=== PATIENT | female | born 1950 | race Caucasian/White ===

== ENCOUNTER 2017-08-10 02:57 | Inpatient (IN) | payer OTHER ==
[~2017-08-10] VITALS: Ht 172.7 cm; Wt 63.5 kg
--- NOTE | ~2017-08-10 | PR ---
[place], [place] PROGRESS NOTE NAME: YULIANA BARAJAS UNIT #: [id number] ROOM: 312 DOCTOR: NAVNEET LARSON DO BIRTHDATE: [birth year] DOS: 08/13/2017 CHIEF COMPLAINT: "I feel tired." SUMMARY OF VISIT: The patient was interviewed in the dining jaime during group session. She states that she is feeling well but states that she feels tired. She reports to staff that she continues to complain about burning in her tongue. She did refuse Magic mouthwash or any other oral medication for her mouth. Staff reported that she did not sleep well. MENTAL STATUS: She is alert and oriented with some time gaps. Her mood is distraught and she continues to have auditory hallucinations with delusions. PLAN: We will increase her Clozaril to 100 mg at night and discontinue the Vistaril. We will continue to watch and monitor her and encourage her to engage in individual and group activities with the plan to return her to the last restrictive environment when she is psychiatrically stable. NAVNEET LARSON DO APOLLO THOMAS MD CM:PNTRANS [id number] [id number] NAVNEET LARSON DO 08/13/17 1429 interface
--- NOTE | ~2017-08-10 | PR ---
[place], [place] PROGRESS NOTE NAME: YULIANA BARAJAS UNIT #: [id number] ROOM: 315 DOCTOR: APOLLO THOMAS MD BIRTHDATE: [birth year] DOS: 08/24/2017 CHIEF COMPLAINT: "I feel sick in my stomach, I feel nauseated, I threw up." SUMMARY OF THE VISIT: The patient was once again interviewed in her room as she was lying in bed, continuing to complain of nausea. This has been a persistent complaint of hers that is occurring on and off. I do not know if this is somatization that she uses to try to stay out of groups or if she truly is sick. Otherwise, when I have seen her the last couple of days, she has brightened upon approach. She seems to be much more pleasant. Her only complaint is that she does not want to go back to the [facility], so perhaps some of her somatization is to find reasons to stay here in the hospital. In any case, I will go ahead and treat and will defer to the hospitalist for any other workup. MENTAL STATUS: She is alert and oriented. Mood does seem to be strongly trending towards euthymia. Affect is more appropriate. There is no henry, hypomania and I do not see gross psychosis as previously. Memory is intact. PLAN: I will go ahead and at least do a short course of Compazine 10 mg t.i.d. straight to see if this impacts positively on her symptoms and if this allows her to attend to groups and other activities. As mentioned above, I will go ahead and defer to the hospitalist if they want to work this up for any organic factors. APOLLO THOMAS MD CM:PNTRANS 1023 1038 APOLLO THOMAS MD 08/24/17 1037 interface
--- NOTE | ~2017-08-10 | PR ---
[place], [place] PROGRESS NOTE NAME: YULIANA BARAJAS UNIT #: [id number] ROOM: 315 DOCTOR: NAVNEET LARSON DO BIRTHDATE: [birth year] DOS: 08/20/2017 CHIEF COMPLAINT: "I am not dizzy." SUMMARY OF VISIT: The patient was interviewed in the dining room. She states that she did not sleep well last night. She denies dizziness. Per staff, she did take her potassium. She appears more alert and oriented at this time than previous days. MENTAL STATUS EXAMINATION: She is alert and oriented, with some time gaps. Mood seems to be trending towards euthymia. She does not have any symptoms or signs of henry or hypomania. Short term memory has gaps, otherwise is intact. She continues to have the symptoms of delusions. PLAN: We will start her on Rozerem 8 mg at night in order to attempt to maximize potential benefit for sleep. We will continue other current psychotropic regimen at this time with her Wellbutrin and Clozaril. She did seem to be more awake and alert today. We will continue to engage her in group and individual activities with the plan to return her to the least restrictive environment when psychiatrically stable. NAVNEET LARSON DO APOLLO THOMAS MD CM:PNTRANS 1133 1345 NAVNEET LARSON DO 08/20/17 1343 interface
--- NOTE | ~2017-08-10 | WRIGHTHP ---
[place], [place] PATIENT HISTORY AND PHYSICAL EXAM NAME: YULIANA BARAJAS UNIT #: [id number] ROOM: 312 DOCTOR: APOLLO THOMAS MD BIRTHDATE: [birth year] DOS: 08/10/2017 PSYCHIATRIC EVALUATION CHIEF COMPLAINT: "I am not schizophrenic, I am bipolar." HISTORY OF PRESENT ILLNESS: This is a 67-year-old white female who is a resident of the [facility]. The patient was brought to the Emergency Room at [facility] and ultimately sent here on an involuntary basis due to gross psychotic symptoms. The patient has been experiencing increased auditory and visual hallucinations. She believes she is seeing ghosts are eating her face up and infecting her with HIV and AIDS. She reports that her tongue is cracked and that is because of the ghost. She has not been eating or drinking well, nor has she necessarily been compliant with her medicines. She is admitted now to rule out organic factors, to stabilize on medication and engage in individual and appiah milieu activity. PAST MEDICAL HISTORY: Remarkable for either history of schizophrenia or bipolar, most likely schizoaffective disorder, also COPD, DVT, eczema, hypertension, [place], hyperlipidemia and Parkinson's disease. ALLERGIES: She has allergies to PENICILLIN, CODEINE and TETRACYCLINE. MENTAL STATUS: She is alert and oriented to person, place and approximate to time. Mood is labile. Affect inappropriate. She is grossly delusional and somewhat paranoid. Short term memory does have some gaps. DIAGNOSIS: Schizoaffective disorder. PLAN: I have already discontinued her Depakote and Cymbalta. I will go ahead and start her on Remeron 15 mg at bedtime for the mood component, discontinue the Risperdal in lieu of Invega 3 mg in the morning. She does have some significant tardive dyskinesia, so I will start vitamin E 200 International Units in the morning, engage in individual and appiah milieu activity, returning to the least restrictive environment when stable. [place], [place] PATIENT HISTORY AND PHYSICAL EXAM NAME: YULIANA BARAJAS UNIT #: [id number] ROOM: 312 DOCTOR: APOLLO THOMAS MD BIRTHDATE: [birth year] APOLLO THOMAS MD CM:HISPHYS:PATIENT HISTORY AND PHYSICAL EXAMINATION 1 1 APOLLO THOMAS MD 08/10/17 0901 interface
--- NOTE | ~2017-08-10 | PR ---
[place], [place] PROGRESS NOTE NAME: YULIANA BARAJAS UNIT #: [id number] ROOM: 315 DOCTOR: NAVNEET LARSON DO BIRTHDATE: [birth year] DOS: 08/19/2017 CHIEF COMPLAINT: "I'm so tired, can I have a pillow. SUMMARY OF VISIT: The patient was interviewed in a room privately by herself. She stated that she was very tired. States that she normally gets up at about 11:30 a.m. and that is very difficult for her to sleep and wake up at 7:00. States that she is very tired, wants a pillow and wants to go back to sleep. States it is difficult for her to participate in groups. Staff reports that she is eating and sleeping well. MENTAL STATUS EXAMINATION: She is alert and oriented with some time gaps. Mood seems to be trending towards euthymia except for the somatic preoccupation. Has no symptoms of henry or hypomania. Short term memory has some gaps. Otherwise, she is intact. She does seem to have symptoms of delusions. PLAN: We will change her Clozaril to be only at night with 150 mg. We will increase her Remeron to the maximum dose 45 mg at night to maximize potential benefit. We will start Wellbutrin 150 mg in the morning. The patient is very fixated on Wellbutrin and described an old outdated medication that she had taken prior. We encouraged her to show some independence in group and continue to engage it, would be okay for her to take a nap, but we do want her participating in the group to be getting up. We want to try to reduce her daytime somnolence. We will continue to engage her in group and individual activities with the plan to return her to the least restrictive environment when psychiatrically stable. NAVNEET LARSON DO APOLLO THOMAS MD CM:PNTRANS 1017 1040 NAVNEET LARSON DO 08/19/17 1039 interface
--- NOTE | ~2017-08-10 | PR ---
[place], [place] PROGRESS NOTE NAME: YULIANA BARAJAS UNIT #: [id number] ROOM: 312 DOCTOR: NAVNEET LARSON DO BIRTHDATE: [birth year] DOS: 08/14/2017 CHIEF COMPLAINT: "I felt hungover from yesterday's medications." SUMMARY OF VISIT: The patient was interviewed in the hallway today. She states that she feels very tired and hungover from the medication that she had previously. She does not complain about any burning in her tongue or any other eye symptoms. MENTAL STATUS: She is alert and oriented with some time gaps. Her mood is distraught and she continues to have decreased delusions. Per report, there is no significant auditory or visual hallucinations; however, she has had this ghost attempting to bite her and eat her in the past has seemed to have somewhat improved. PLAN: We will maintain her current psychotropic regimen at this time to have her body adapt as the change of medication will for the time increase her fatigue and tiredness; however, as she continues to take these medications, this should improve. We will continue to watch her and monitor her. We will continue to engage her in group and individual activities with the plan to return her to the least restrictive environment when psychiatrically stable. NAVNEET LARSON DO APOLLO THOMAS MD CM:PNCUBA 1239 1324 NAVNEET LARSON DO 08/14/17 1323 interface
--- NOTE | ~2017-08-10 | PR ---
[place], [place] PROGRESS NOTE NAME: YULIANA BARAJAS UNIT #: [id number] ROOM: 312 DOCTOR: APOLLO THOMAS MD BIRTHDATE: [birth year] DOS: 08/11/2017 CHIEF COMPLAINT: "Oh the voices in my head." SUMMARY OF THE VISIT: The patient was interviewed as she was resting quietly in bed. She did awake as I approached and called out her name. She maintained eye contact. She did report that the voices in her head continued to be persistent and have made it very difficult for her to function during the day. Of note, she continues to have upper extremity tremors as well as some oral tremors as well. MENTAL STATUS: She is alert and oriented with time gaps. Mood does seem to be very distraught and she is endorsing significant auditory hallucinations. She is also markedly delusional. Memory has gaps. PLAN: Given the fact that her tardive dyskinesia is so prominent and can interfere with her quality of life, I will augment the Invega with clozapine 12.5 mg b.i.d. I am using this dose specifically to attempt to suppress and reverse her tardive dyskinesia. I may depending on her response to it utilize the clozapine as a primary antipsychotic and ultimately discontinue the Invega. We will monitor for risk, benefit, engage in individual and appiah milieu activity, returning to the least restrictive environment when psychiatrically stable. APOLLO THOMAS MD CM:PNTRANS 1026 1039 APOLLO THOMAS MD 08/11/17 1038 interface
--- NOTE | ~2017-08-10 | PR ---
[place], [place] PROGRESS NOTE NAME: YULIANA BARAJAS UNIT #: [id number] ROOM: 315 DOCTOR: NAVNEET LARSON DO BIRTHDATE: [birth year] DOS: 08/21/2017 CHIEF COMPLAINT: "I feel tired." SUMMARY OF VISIT: The patient was interviewed in the group therapy room individually. She continues to state that she is sleepy and tired. According to staff, she was ____ concerning her care ____ neurological evaluation; however, as we will have this at our facility, do recommend a referral for [facility] when she returns to that facility. MENTAL STATUS EXAMINATION: She is alert and oriented with sometimes gaps. Mood seems to be trending towards euthymia. She appears to be more awake and alert with less daytime drowsiness; however, this still continues to be an issue for her. Short term memory does have some gaps. She continues to have symptoms of delusions. PLAN: We will increase her Wellbutrin to 300 mg in the morning and continue her other current psychotropic regimen at this time. We will continue to engage her in group and individual activities with the plan to return her to the least restrictive environment when psychiatrically stable. NAVNEET LARSON DO APOLLO THOMAS MD CM:PNTRANS 1131 1330 NAVNEET LARSON DO 08/22/17 1329 interface
--- NOTE | ~2017-08-10 | PR ---
[place], [place] PROGRESS NOTE NAME: [facility]NA [facility]AJAS [id number] UNIT #: [id number] ROOM: 315 DOCTOR: LORNE DUNN MD BIRTHDATE: [birth year] DOS: 08/17/2017 PSYCHIATRIC PROGRESS NOTE SUBJECTIVE: The patient seen and spoke with the staff. Per staff, the patient is still somatic, med compliant, stays in her room most of the time. The patient was in her room on the bed. She was sleeping. When I asked her how she is doing, she said "I hate it here." She denied being depressed. She said that she is taking her medication regularly and did not have any side effect from the medication. MENTAL STATUS EXAMINATION: Pleasant, cooperative, described her mood as "I hate it here." Affect was irritable. Thought process goal directed. No flight of ideas, loosening of association. She denied auditory or visual hallucination. No delusion or paranoia noted. She denied suicidal ideation, intent or plan. She also denied homicidal ideation, intent or plan. PLAN: 1. Continue current medication and care. 2. Encourage activity in groups. 3. Medication management and discharge plan by the regular team. LORNE DUNN MD CM:PNTRANS [phone] LORNE DUNN MD 08/17/172355 interface
--- NOTE | ~2017-08-10 | PR ---
[place], [place] PROGRESS NOTE NAME: YULIANA BARAJAS UNIT #: [id number] ROOM: 315 DOCTOR: APOLLO THOMAS MD BIRTHDATE: [birth year] DOS: 08/23/2017 CHIEF COMPLAINT: "I need to walk better." SUMMARY OF THE VISIT: The patient was interviewed as she sat in a wheelchair. She brightened upon approach and smiled readily as I down next to her. She does report feeling better, but still states that occasionally during the day she feels very tired. She also is concerned that she is not ambulating well and I discussed the option of getting her walker once physical therapy comes back again. She denies any other side effects with the medicines. She is sleeping better at nighttime when she needs to be sleeping. MENTAL STATUS: She is alert and oriented to person, place, and approximate to time. Mood does seem to be trending strongly towards euthymia. Affect is more appropriate. There is no henry or hypomania. There are no auditory or visual hallucinations. No delusions, no paranoia. Short term memory has gaps, otherwise she is intact. PLAN: I will maintain her current psychotropic regimen, support and monitor, engage in individual and appiah milieu activity. Discussed with physical therapy about obtaining a walker then discharge to [facility] when stable. APOLLO THOMAS MD CM:PNTRANS [phone] APOLLO THOMAS MD 08/23/17 1127 interface
--- NOTE | ~2017-08-10 | PR ---
[place], [place] PROGRESS NOTE NAME: YULIANA BARAJAS UNIT #: [id number] ROOM: 312 DOCTOR: NAVNEET LARSON DO BIRTHDATE: [birth year] DOS: 08/12/2017 CHIEF COMPLAINT: "I feel good." SUMMARY OF THE VISIT: The patient was interviewed while she was sitting quietly in bed. She states that she is feeling good but she did not sleep well. She states that she feels unsafe and states that there are ghosts that are trying to eat her face to kill her. When asked if she feels safe right now, she did say yes that she feels safe with the physician. MENTAL STATUS: She is alert and oriented with time gaps. Her mood continued to be distraught and she does have auditory hallucinations with delusions. PLAN: We will increase her Clozaril medication and we will discontinue the Invega. We will start Vistaril 50 mg b.i.d. and we will check her vitamin B12 level. We will monitor symptoms and attempt to suppress and reverse her tardive dyskinesia with the increase of the clonazepam. We will continue to monitor risks and benefits and engage her in individual and group activities with the plan to return her to the least restrictive environment when she is psychiatrically stable. NAVNEET LARSON DO APOLLO THOMAS MD CM:PNCUBA 1144 1323 NAVNEET LARSON DO 08/12/17 1322 interface
--- NOTE | ~2017-08-10 | PR ---
[place], [place] PROGRESS NOTE NAME: YULIANA BARAJAS UNIT #: [id number] ROOM: 315 DOCTOR: LORNE DUNN MD BIRTHDATE: [birth year] DOS: 08/16/2017 SUBJECTIVE: The patient seen and spoke with the staff. Per staff, the patient is very somatic, always had complaint related with her physical issues even though she was cleared medically and medical team has been following her regularly. She is compliant with her medication. She slept well last night. The patient was pleasant and cooperative. She was in her bed. When I asked her how she doing, she said that "not real good", but not able to come up with any specific reason why she is not feeling good. She said that she still feels sad and down, but denied hopelessness or helplessness. She denied any side effects from the medication. MENTAL STATUS EXAMINATION: Pleasant, cooperative. Described her mood as "down." Affect was flat, constricted. Thought processes are goal directed. No flight of ideas, loosening of association. She denied auditory or visual hallucination. No delusion or paranoia noted. She denied suicidal ideation, intent or plan. She also denied homicidal ideation, intent or plan. PLAN: 1. Continue current medications and care. 2. Encourage activity and groups. 3. Psychoeducation coping skill. 4. Supportive care. LORNE DUNN MD CM:PNTRANS [phone] LORNE DUNN MD 08/17/17 0519 interface
--- NOTE | ~2017-08-10 | PR ---
[place], [place] PROGRESS NOTE NAME: YULIANA BARAJAS UNIT #: [id number] ROOM: 315 DOCTOR: APOLLO THOMAS MD BIRTHDATE: [birth year] DOS: 08/25/2017 CHIEF COMPLAINT: "I am okay with discharge." SUMMARY OF THE VISIT: The patient was interviewed in her room. She was resting in bed. She did complain of drowsiness. The only new medication change that was made was ordering Compazine 10 mg 3 times a day straight, which might be causing some excess daytime somnolence. Otherwise, she seems bright upon approach; more engaging and voicing a readiness to return back home. MENTAL STATUS: She is alert and oriented. Mood does seem to be trending towards euthymia. Affect is more appropriate. There is no hypomania, henry or psychosis. Short term memory has some minor gaps, otherwise she is intact. PLAN: I will discontinue her straight Compazine as to hoping to lessen this somnolence. We will continue to engage her in individual and appiah milieu activities, returning to the least restrictive environment when stable. APOLLO THOMAS MD CM:PNTRANS 0915 1004 APOLLO THOMAS MD 08/25/17 1003 interface
--- NOTE | ~2017-08-10 | PR ---
[place], [place] PROGRESS NOTE NAME: YULIANA BARAJAS UNIT #: [id number] ROOM: 315 DOCTOR: NAVNEET LARSON DO BIRTHDATE: [birth year] DOS: 08/22/2017 CHIEF COMPLAINT: "I slept well." SUMMARY OF VISIT: The patient was interviewed in the dining room area. She reported that she had slept. According to staff, she had walked with assistance to the bathroom; however, she does report that she does have difficulties, would like to have a walker. She continues to fixate on her Wellbutrin, medication which she is receiving. MENTAL STATUS EXAMINATION: She is alert and oriented with time gaps. Her mood does seem to be improving along with her daytime mentation and decrease in somnolence. She does continue to complain that she is tired and wants to take naps, continues to have symptoms of delusions. PLAN: We will start on Ativan 1 mg q. 6 hours as needed medication for anxiety, continue to monitor her and continue her other current psychotropic regimen at this time ____ her sleep and somnolence during the day. We will continue to engage her in individual and group activities with the plan to return her to the least restrictive environment once psychiatrically stable. NAVNEET LARSON DO APOLLO THOMAS MD CM:KIA 1134 1310 NAVNETE LARSON DO 08/22/17 1309 interface
--- NOTE | ~2017-08-10 | PR ---
[place], [place] PROGRESS NOTE NAME: YULIANA BARAJAS UNIT #: [id number] ROOM: 315 DOCTOR: APOLLO THOMAS MD BIRTHDATE: [birth year] DOS: 08/18/2017 CHIEF COMPLAINT: "I don't want to get up, I am going to throw up." SUMMARY OF THE VISIT: The patient was interviewed in her room. She was resting in bed. She was very much somatically preoccupied, stating that she felt like she was going to throw up. Nurses report that this was pretty much her consistent behavior through the weekend, in that she continued to be very somatic, did not want to leave her bedroom, did not want to get out of bed. They note, however, that she is attending to her ADLs. She is eating and she is sleeping well. She does seem to be tolerating the current medication regimen well. MENTAL STATUS: She is alert and oriented with some mild time gaps. Mood does seem to be trending towards euthymia except for the somatic preoccupation. There is no henry, hypomania. The somatization borders on delusional. Short term memory has some gaps, otherwise she is intact. PLAN: At this point is to increase her daytime Clozaril from 12.5 mg b.i.d. to 25 b.i.d., maintain the nighttime dose at 100 mg at bedtime, engage in individual and appiah milieu activity, returning to the least restrictive environment when stabilized. APOLLO THOMAS MD CM:PNTRANS 1012 1115 APOLLO THOMAS MD 08/18/17 1114 interface
--- NOTE | ~2017-08-10 | PROC NOTE ---
[place], [place] PROCEDURE NOTE NAME: YULIANA BARAJAS UNIT #: [id number] ROOM: 315 DOCTOR: EV HUERTA BIRTHDATE: [birth year] DOS: 08/25/2017 MODIFIED BARIUM SWALLOW LOCATION: [address] [place] [address], room 315, bed 1. ORDERING PHYSICIAN: Dr. Toussaint. RADIOLOGIST: Dr. Houston. BACKGROUND INFORMATION: The patient is a 67-year-old female who was seen for modified barium swallow. This test was ordered due to nausea and vomiting of meals. This patient is known to this department as she was recently seen for diet upgrade to regular. The patient has been tolerating this diet consistency and denies any difficulty chewing or swallowing. For today's assessment, she was alert and able to follow commands. The patient presents with natural teeth that were in good condition. Oral skills were within normal limits in terms of strength, range of motion and coordination. METHODS AND MATERIALS USED FOR THE EXAM: The patient was positioned in the lateral plane and examination was viewed under fluoroscopy. The patient presented with a variety of consistencies to assess swallowing skills including barium-coated cookie and bread taken in bite size pieces and thin liquid barium taken by cup. ORAL PHASE: Unremarkable. PHARYNGEAL PHASE: Unremarkable. ESOPHAGEAL PHASE: This phase of the swallow was not formally assessed during this examination. IMPRESSIONS AND RECOMMENDATIONS: Based upon assessment results, this 67-year-old patient presents with oral and pharyngeal swallowing skills that are within normal limits. It is recommended that she remain on regular diet and thin liquid. No followup therapy is warranted. Results and recommendations were shared with the patient and staff and they verbalized understanding. Thank you very much for this referral. Should you have questions regarding this assessment, please contact the speech pathologist at [phone]. [place], [place] PROCEDURE NOTE NAME: YULIANA BARAJAS UNIT #: [id number] ROOM: 315 DOCTOR: EV HUERTA BIRTHDATE: [birth year] EV HUERTA CM:PROCNOTE:PROCEDURE NOTE 1415 1505 EV HUERTA
--- NOTE | ~2017-08-10 | DS ---
[place], [place] DISCHARGE SUMMARY NAME: [id number] UNIT #: [id number] ROOM: 315 DOCTOR: APOLLO THOMAS MD BIRTHDATE: [birth year] DOS: 08/26/2017 CHIEF COMPLAINT: "I am not schizophrenic, I am bipolar." HISTORY OF PRESENT ILLNESS: This is a 67-year-old white female who is a resident of the [facility]. The patient was brought to the Emergency Room at [facility] on an involuntary basis due to gross psychotic symptoms. The patient has been experiencing increased auditory and visual hallucinations. She believes she is seeing ghosts that are eating her face and are infecting her with HIV and AIDS. She reports that her tongue is cracked and has been infected with the HIV virus. She has not been eating or drinking. She has not been attending to her ADLs and she has not been compliant with her medications. Because of the severity of her symptoms, she was admitted to rule out organic factors and attempt to stabilize on medication while engaging in individual and appiah milieu activity. PAST MEDICAL HISTORY: Remarkable for schizophrenia or bipolar disorder, COPD, DVT, eczema, hypertension, MO, hyperlipidemia and Parkinson's disease. ALLERGIES: She has allergies to PENICILLIN, CODEINE AND TETRACYCLINE. SUMMARY OF HOSPITAL COURSE: The patient was admitted to the unit where her Depakote and Cymbalta and Vistaril were discontinued. She was started on Remeron 15 mg at bedtime to combat the depression. Risperdal was discontinued in lieu of Invega. She did have significant tardive dyskinesia both of the tongue and of hands. She was started on vitamin E 200 International Units to attempt to reverse this. She continued despite these medication changes to be grossly psychotic and delusional and her tremors became worse with the Invega. Ultimately it was decided to discontinue the Invega in lieu of clozapine, which not only would be more efficacious in combating the psychotic symptoms, but would also, reverse the tardive dyskinesia which it did. Clozaril was gradually increased to its maximum dose during this stay of 150 mg at bedtime. The Remeron was gradually increased from 15 to 30 and then ultimately to 45 mg at bedtime due to excess sedation and the lack of energy that she had. She found it very difficult to engage in activities of daily living. This increase did seem to help. Ultimately, she reported that she did well when Wellbutrin was on board, so Wellbutrin-XL 150 was started with the dose being maxed out to 300 mg a day. With this combination of medicine her mood did improve. She no longer talked about being infected with AIDs. She was no longer seeing ghosts or other things. She was bright upon approach. She was engaging in activities. The only negative point was that she loved it here so much, she did not want to go back to the [facility] and often times would complain of physical ailments, I believe in an effort to try to stay here. Overall, she had improved so well that she was attending to her ADLs and was very well groomed. She was sleeping well, eating well and her symptoms were totally under control. MENTAL STATUS AT DISCHARGE: The patient was alert and oriented to person, place and time. Mood was euthymic. Affect appropriate. There were no symptoms of henry or hypomania. There were no gross psychotic symptoms. Memory for the most part was intact. [place], [place] DISCHARGE SUMMARY NAME: YULIANA BARAJAS UNIT #: [id number] ROOM: 315 DOCTOR: APOLLO THOMAS MD BIRTHDATE: [birth year] FINAL DIAGNOSES UPON DISCHARGE: Schizoaffective disorder. DISPOSITION: The patient is to return to the [facility]. Medically and psychiatrically she is stable. Her biopsychosocial needs will be met by her family, by the staff at the [facility] and myself. APOLLO THOMAS MD CM:DISCHARG [id number] APOLLO THOMAS MD 08/26/17 1119 interface
--- NOTE | ~2017-08-10 | PR ---
[place], [place] PROGRESS NOTE NAME: YULIANA BARAJAS UNIT #: [id number] ROOM: 315 DOCTOR: NAVNEET LARSON DO BIRTHDATE: [birth year] DOS: 08/15/2017 CHIEF COMPLAINT: The patient opened her eyes and then closed them. SUMMARY OF VISIT: The patient was interviewed in her room. She was in her bed. She did open her eyes and respond to light touch. She did not engage in conversation. There is noted to be a basin with very small amount of spit up. According to the staff, the patient stated that she was vomiting out her ghosts and that this behavior is with her. MENTAL STATUS EXAMINATION: She is alert and oriented with time gaps. Her mood is distraught and she continues to have increased delusions. She continues to think that there are ghosts biting her and trying to eat her and that she is trying to vomit them out. PLAN: We will increase her Remeron to 30 mg at night and give her lactulose to attempt to improve her constipation. We will continue to monitor as her regimen will make her tired and fatigued; however, as she continues to take this medication, so side effects should stop and she should start to improve. We will continue engage her in group and individual activities with the plan to return her to the least restrictive environment when psychiatrically stable. NAVNEET LARSON DO APOLLO THOMAS MD CM:PNTRANS [id number] NAVNEET LARSON DO 08/15/17 1029 interface
[2017-08-10 03:11] VITALS: BP 158/92
[2017-08-10 03:31] LABS: BASO # 0.1 10*3/uL (0.0-0.1); BASO % 0.5 % (0.0-1.0); EOS # 0.2 10*3/uL (0.0-0.4); EOS % 1.8 % (1.0-4.0); HEMATOCRIT 36.9 % (37.0-47.0); HEMOGLOBIN 11.9 g/dl (12.0-16.0); LYMPH % 17.9 % (27.0-41.0); MEAN CELL VOLUME 76.6 fl (81.0-99.0); MEAN CORPUSCULAR HGB 24.7 pg (27.0-31.0); MEAN CORPUSCULAR HGB CONC 32.2 g/dl (33.0-37.0); MONO % 8.6 % (3.0-9.0); NEUT # 8.1 10*3/uL (2.3-7.9); NEUT % 70.8 % (47.0-73.0); PLATELET COUNT AUTOMATED 316 10*3/uL (130-400); RED BLOOD COUNT 4.82 10*6/uL (4.10-5.10); RED CELL DISTRI WIDTH 15.3 % (0-14.5); WHITE BLOOD COUNT 11.4 10*3/uL (4.8-10.8)
[2017-08-10] MEDS ORDERED: CYMBALTA60 MG PO (03:38)
[2017-08-10] MEDS ORDERED: DEPAKOTE500 M1 PO (03:39)
[2017-08-10] MEDS ORDERED: TOPICORT 0.25%15 GM T (03:41)
[2017-08-10] MEDS ORDERED: DEPAKOTE250 MG PO (03:41)
[2017-08-10] MEDS ORDERED: DULCOLAX10 M1 R (03:43)
[2017-08-10 03:45] LABS: ALBUMIN 4.1 gm/dl (3.1-4.5); ALKALINE PHOSPHATASE 91 U/L (45-117); BUN 17 mg/dl (7-24); CHLORIDE 102 mmol/L (98-107); CREATININE 1.03 mg/dL (0.55-1.02); POTASSIUM 3.2 mmol/L (3.5-5.1); SGOT/AST 19 IU/L (3-35); SGPT/ALT 19 U/L (12-78); SODIUM 137 mmol/L (136-145); TOTAL PROTEIN 7.3 gm/dL (6.4-8.2)
[2017-08-10] MEDS ORDERED: HALDOL0.5 MG PO (03:46)
[2017-08-10] MEDS ORDERED: HYDROXYZINE PAM50 MG PO (03:47)
[2017-08-10 03:48] LABS: ACETAMINOPHEN (TYLENOL) < 2.0 ug/ml (10-30)
[2017-08-10] MEDS ORDERED: PRAVASTATIN SOD20 MG PO (03:49)
[2017-08-10] MEDS ORDERED: OXYBUTYNIN ER15 MG PO (03:49)
[2017-08-10] MEDS ORDERED: VITAMIN D350000 UNIT PO (03:50)
[2017-08-10 03:55] LABS: ETHYL ALCOHOL < 3.0 mg/dl (<3)
[2017-08-10 04:26] LABS: BILIRUBIN NEGATIVE (NEGATIVE); BLOOD 1+ (NEGATIVE); CLARITY SL CLOUDY (CLEAR); COLOR YELLOW (YELLOW); GLUCOSE NEGATIVE (NEGATIVE); KETONE 1+ (NEGATIVE); LEUKO ESTERASE 2+ (NEGATIVE); NITRITE POSITIVE (NEGATIVE); PH 5.5 (5.0-9.0); SPECIFIC GRAVITY 1.025 (1.005-1.030); UROBILINOGEN 0.2 E.U./dl (0.2-1.0)
[2017-08-10 04:36] LABS: WBC 51-100 wbc/hpf (0-5)
[2017-08-10 04:37] LABS: BACTERIA 4+
[2017-08-10 04:39] LABS: URINE AMPHETAMINES < 1000 (1000ng/ml); URINE BARBITURATES < 200 (200ng/ml); URINE BENZODIAZEPINES < 200 (200ng/ml); URINE CANNABINOIDS (THC) < 50 (50ng/ml); URINE COCAINE < 300 (300ng/ml); URINE METHADONE < 300 (300ng/ml); URINE OPIATES < 300 (300ng/ml)
[2017-08-10 04:40] LABS: URINE PHENCYCLIDINE < 25 (25ng/ml)
[2017-08-10] MEDS ORDERED: MACROBID100 M1 PO (05:01)
[2017-08-10] MEDS ORDERED: K-LOR 20MEQ20 ME1 PO (05:01)
[2017-08-10 05:37] VITALS: BP 133/78
[2017-08-10 06:02] LABS: CHOLESTEROL 149 mg/dL (<200); HDL CHOLESTEROL 54 mg/dl (40-60); LDL CHOLESTEROL 74 mg/dL (9-159); TRIGLYCERIDES 107 mg/dl (<150); VLDL CHOLESTEROL 21 mg/dL (6-40)
[2017-08-10 06:14] VITALS: BP 133/78
[2017-08-10 07:24] VITALS: BP 133/78
[2017-08-10 08:24] VITALS: BP 133/78
[2017-08-10 19:45] VITALS: BP 134/76
[2017-08-11 07:56] VITALS: BP 132/76
[2017-08-11 20:27] VITALS: BP 130/70
[2017-08-12 08:04] VITALS: BP 134/69
[2017-08-12 12:01] LABS: BASO % 0.4 % (0.0-1.0); EOS # 0.2 10*3/uL (0.0-0.4); EOS % 3.1 % (1.0-4.0); HEMATOCRIT 33.5 % (37.0-47.0); HEMOGLOBIN 10.6 g/dl (12.0-16.0); LYMPH # 1.1 10*3/uL (1.3-4.4); LYMPH % 15.4 % (27.0-41.0); MEAN CELL VOLUME 78.5 fl (81.0-99.0); MEAN CORPUSCULAR HGB 24.8 pg (27.0-31.0); MEAN CORPUSCULAR HGB CONC 31.6 g/dl (33.0-37.0); MEAN PLATELET VOLUME 11.3 fl (9.6-12.3); MONO # 0.7 10*3/uL (0.1-1.0); MONO % 9.2 % (3.0-9.0); NEUT # 5.1 10*3/uL (2.3-7.9); NEUT % 71.5 % (47.0-73.0); PLATELET COUNT AUTOMATED 265 10*3/uL (130-400); RED BLOOD COUNT 4.27 10*6/uL (4.10-5.10); WHITE BLOOD COUNT 7.1 10*3/uL (4.8-10.8)
[2017-08-12 12:35] LABS: ALBUMIN 3.2 gm/dl (3.1-4.5); BUN 9 mg/dl (7-24); CHLORIDE 109 mmol/L (98-107); CREATININE 0.89 mg/dL (0.55-1.02); POTASSIUM 3.6 mmol/L (3.5-5.1); SGOT/AST 11 IU/L (3-35); SGPT/ALT 16 U/L (12-78); SODIUM 142 mmol/L (136-145); TOTAL PROTEIN 6.1 gm/dL (6.4-8.2)
[2017-08-12 12:36] LABS: ALKALINE PHOSPHATASE 76 U/L (45-117)
[2017-08-12 19:39] VITALS: BP 138/74
[2017-08-13 09:23] VITALS: BP 118/65
[2017-08-13 09:27] VITALS: BP 118/65
[2017-08-13 20:10] VITALS: BP 106/78
[2017-08-14 08:43] VITALS: BP 122/68
[2017-08-14 21:13] VITALS: BP 108/69
[2017-08-15 08:03] VITALS: BP 112/71
[2017-08-15 20:00] VITALS: BP 109/65
[2017-08-15 21:18] VITALS: BP 109/65
[2017-08-16 08:02] VITALS: BP 111/65
[2017-08-16 19:52] VITALS: BP 122/56
[2017-08-17 06:12] LABS: BASO % 0.5 % (0.0-1.0); EOS # 0.5 10*3/uL (0.0-0.4); EOS % 6.9 % (1.0-4.0); HEMOGLOBIN 9.6 g/dl (12.0-16.0); LYMPH # 1.6 10*3/uL (1.3-4.4); LYMPH % 21.8 % (27.0-41.0); MEAN CELL VOLUME 79.1 fl (81.0-99.0); MEAN CORPUSCULAR HGB 24.5 pg (27.0-31.0); MEAN PLATELET VOLUME 11.3 fl (9.6-12.3); MONO # 0.8 10*3/uL (0.1-1.0); MONO % 10.9 % (3.0-9.0); NEUT # 4.5 10*3/uL (2.3-7.9); NEUT % 59.6 % (47.0-73.0); PLATELET COUNT AUTOMATED 290 10*3/uL (130-400); RED BLOOD COUNT 3.92 10*6/uL (4.10-5.10); RED CELL DISTRI WIDTH 15.9 % (0-14.5); WHITE BLOOD COUNT 7.5 10*3/uL (4.8-10.8)
[2017-08-17 07:59] VITALS: BP 117/69
[2017-08-17 20:42] VITALS: BP 115/54
[2017-08-18 07:50] VITALS: BP 118/72
[2017-08-18 21:29] VITALS: BP 107/92
[2017-08-19 08:20] VITALS: BP 136/69
[2017-08-19 20:46] VITALS: BP 128/79
[2017-08-20 06:43] LABS: BASO # 0.1 10*3/uL (0.0-0.1); BASO % 0.9 % (0.0-1.0); EOS # 0.4 10*3/uL (0.0-0.4); EOS % 5.2 % (1.0-4.0); HEMATOCRIT 29.5 % (37.0-47.0); HEMOGLOBIN 9.2 g/dl (12.0-16.0); LYMPH # 1.7 10*3/uL (1.3-4.4); LYMPH % 24.1 % (27.0-41.0); MEAN CELL VOLUME 79.5 fl (81.0-99.0); MEAN CORPUSCULAR HGB 24.8 pg (27.0-31.0); MEAN CORPUSCULAR HGB CONC 31.2 g/dl (33.0-37.0); MONO # 0.6 10*3/uL (0.1-1.0); MONO % 9.2 % (3.0-9.0); NEUT # 4.2 10*3/uL (2.3-7.9); NEUT % 60.3 % (47.0-73.0); PLATELET COUNT AUTOMATED 318 10*3/uL (130-400); RED BLOOD COUNT 3.71 10*6/uL (4.10-5.10); RED CELL DISTRI WIDTH 15.4 % (0-14.5)
[2017-08-20 06:50] LABS: ALBUMIN 2.9 gm/dl (3.1-4.5); BUN 11 mg/dl (7-24); CHLORIDE 109 mmol/L (98-107); CREATININE 0.88 mg/dL (0.55-1.02); POTASSIUM 3.6 mmol/L (3.5-5.1); SGOT/AST 10 IU/L (3-35); SGPT/ALT 14 U/L (12-78); SODIUM 141 mmol/L (136-145); TOTAL PROTEIN 5.6 gm/dL (6.4-8.2)
[2017-08-20 06:51] LABS: ALKALINE PHOSPHATASE 61 U/L (45-117)
[2017-08-20 08:00] VITALS: BP 120/55; BP 124/68
[2017-08-20 20:00] VITALS: BP 113/62
[2017-08-21 08:52] VITALS: BP 108/68
[2017-08-21 09:01] VITALS: BP 108/68
[2017-08-21 20:18] VITALS: BP 128/61
[2017-08-22 08:06] VITALS: BP 117/62
[2017-08-22 08:08] VITALS: BP 117/62
[2017-08-22 20:11] VITALS: BP 121/68
[2017-08-23 07:56] VITALS: BP 118/84
[2017-08-23 21:11] VITALS: BP 112/74
[2017-08-24 07:28] VITALS: BP 121/82
[2017-08-24 19:49] VITALS: BP 124/86
[2017-08-25 07:40] LABS: BASO # 0.1 10*3/uL (0.0-0.1); BASO % 0.8 % (0.0-1.0); EOS # 0.3 10*3/uL (0.0-0.4); EOS % 3.3 % (1.0-4.0); HEMATOCRIT 30.7 % (37.0-47.0); HEMOGLOBIN 9.7 g/dl (12.0-16.0); LYMPH # 1.6 10*3/uL (1.3-4.4); LYMPH % 20.5 % (27.0-41.0); MEAN CELL VOLUME 77.5 fl (81.0-99.0); MEAN CORPUSCULAR HGB 24.5 pg (27.0-31.0); MEAN CORPUSCULAR HGB CONC 31.6 g/dl (33.0-37.0); MEAN PLATELET VOLUME 10.6 fl (9.6-12.3); MONO # 0.8 10*3/uL (0.1-1.0); MONO % 10.9 % (3.0-9.0); NEUT # 4.9 10*3/uL (2.3-7.9); NEUT % 64.2 % (47.0-73.0); PLATELET COUNT AUTOMATED 322 10*3/uL (130-400); RED BLOOD COUNT 3.96 10*6/uL (4.10-5.10); WHITE BLOOD COUNT 7.6 10*3/uL (4.8-10.8)
[2017-08-25 07:56] VITALS: BP 125/62
[2017-08-25 20:09] VITALS: BP 118/60
[2017-08-26 07:57] VITALS: BP 117/58
[2017-08-26] MEDS ORDERED: BUDEPRION XL150 MG PO (09:36)
[2017-08-26] MEDS ORDERED: CLOZAPINE100 MG PO (09:36)
[2017-08-26] MEDS ORDERED: VITAMIN E200 UNI1 PO (09:36)
[2017-08-26] MEDS ORDERED: ROZEREM8 MG PO (09:36)
[2017-08-26] MEDS ORDERED: MIRTAZAPINE45 MG PO (09:36)
== END 2017-08-26 15:09 | DRG 885 ==
LOC: ED 02:57 → 3N 05:08
PROVIDERS: Emergency Medicine Emergency Medical Services; Psychiatry & Neurology Psychiatry; Registered Nurse
PROC: BD11YZZ Fluoroscopy of Esophagus using Other Contrast (ICD-10-PCS; principal; 2017-08-25)
PROC: BD1BYZZ Fluoroscopy of Mouth/Oropharynx using Other Contrast (ICD-10-PCS; principal; 2017-08-25)
DX: F25.9 Schizoaffective disorder, unspecified (principal); A41.9 Sepsis, unspecified organism; G20 Parkinson's disease; B37.0 Candidal stomatitis; I82.409 Acute embolism and thrombosis of unspecified deep veins of unspecified lower extremity; N39.0 Urinary tract infection, site not specified; J44.9 Chronic obstructive pulmonary disease, unspecified; E78.5 Hyperlipidemia, unspecified; F31.9 Bipolar disorder, unspecified; I10 Essential (primary) hypertension; E87.6 Hypokalemia; G47.00 Insomnia, unspecified; L30.9 Dermatitis, unspecified; K21.9 Gastro-esophageal reflux disease without esophagitis; N28.9 Disorder of kidney and ureter, unspecified; N32.81 Overactive bladder; I25.2 Old myocardial infarction; Z86.718 Personal history of other venous thrombosis and embolism; Z79.01 Long term (current) use of anticoagulants; Z88.1 Allergy status to other antibiotic agents; Z88.5 Allergy status to narcotic agent; Z88.0 Allergy status to penicillin; Z79.899 Other long term (current) drug therapy; Z90.710 Acquired absence of both cervix and uterus; Z79.82 Long term (current) use of aspirin